=== PATIENT | female | born 1950 | race African-American/Black ===

== ENCOUNTER 2018-07-28 15:13 | Emergency (ER) | payer MEDICARE, OTHER ==
--- NOTE | 2018-07-28 15:44 | Emergency Department Report ---
Blank Doc - Documentation Documentation: This is a 67-year-old female that was sent by PCP due to abnormal blood work and blood "too thin". Patient is on Coumdian. Denies any signs or symptoms. This initial assessment/diagnostic orders/clinical plan/treatment(s) is/are subject to change based on patient's health status, clinical progression and re- assessment by fellow clinical providers in the ED. Further treatment and workup at subsequent clinical providers discretion. Patient/guardians urged not to elope from the ED as their condition may be serious if not clinically assessed and managed. Initial orders include: 1- Patient sent to MAIN ED for further evaluation and treatment 2- labs
[2018-07-28 17:52] LABS: Basophils % (Auto) 0.5 % (0.0-1.8); Eosinophils # (Auto) 0.1 K/mm3 (0.0-0.4); Eosinophils % (Auto) 1.3 % (0.0-4.3); Hematocrit 43.9 % (30.3-42.9); Hemoglobin 14.8 gm/dl (10.1-14.3); Lymphocytes # (Auto) 1.8 K/mm3 (1.2-5.4); Mean Corpuscular HGB Conc 34 % (30-34); Mean Corpuscular Volume 92 fl (79-97); Monocytes # (Auto) 0.6 K/mm3 (0.0-0.8); Monocytes % (Auto) 6.2 % (0.0-7.3); Platelet Count 281 K/mm3 (140-440); Red Cell Distribution Width 13.4 % (13.2-15.2)
[2018-07-28 18:12] LABS: Calcium 9.4 mg/dL (8.4-10.2)
[2018-07-28 18:29] LABS: INR 5.19 (0.87-1.13); Partial Thromboplastin Time 65.6 Sec. (24.2-36.6)
--- NOTE | 2018-07-28 18:58 | Emergency Department Report ---
ED General Adult HPI - General Chief complaint: Medical Clearance Stated complaint: BLOOD THIN Time Seen by Provider: 07/28/18 15:43 Source: patient Mode of arrival: Ambulatory Limitations: No Limitations - History of Present Illness Initial comments: Patient is 67-year-old female with history of atrial fibrillation on Coumadin at 5 mg daily. Patient sent by our primary care physician for evaluation of elevated INR of 7.5. Patient denies any symptoms. Patient denied any hematemesis, hematochezia hematuria, hematochezia or melena. The patient also denied any headache, chest pain or shortness of breaths. No fever or chills. - Related Data Home Medications Medication Instructions Recorded Confirmed Last Taken AtorvaSTATin [Lipitor] 10 mg PO QDAY 01/13/16 01/13/16 Unknown metFORMIN [Glucophage] 850 mg PO QDAY 01/13/16 01/13/16 Unknown Previous Rx's Medication Instructions Recorded Last Taken Type Loperamide [Imodium] 2 mg PO Q2HR PRN #20 capsule 01/13/16 Unknown Rx Allergies Allergy/AdvReac Type Severity Reaction Status Date / Time No Known Allergies Allergy Unverified 01/12/16 17:14 ED Review of Systems ROS: Stated complaint: BLOOD THIN Other details as noted in HPI Comment: All other systems reviewed and negative Constitutional: denies: chills, fever Respiratory: denies: cough, orthopnea, shortness of breath, SOB with exertion, wheezing Cardiovascular: denies: chest pain, palpitations Gastrointestinal: denies: abdominal pain, nausea, vomiting, diarrhea, constipation, hematemesis, melena, hematochezia Genitourinary: denies: urgency, hematuria, abnormal menses Musculoskeletal: denies: back pain Neurological: denies: headache, weakness, numbness, paresthesias, confusion, abnormal gait ED Past Medical Hx - Past Medical History Hx Diabetes: Yes Additional medical history: Gout - Social History Smoking Status: Never Smoker Substance Use Type: None - Medications Home Medications: Home Medications Medication Instructions Recorded Confirmed Last Taken Type AtorvaSTATin [Lipitor] 10 mg PO QDAY 01/13/16 01/13/16 Unknown History Loperamide [Imodium] 2 mg PO Q2HR PRN #20 capsule 01/13/16 Unknown Rx metFORMIN [Glucophage] 850 mg PO QDAY 01/13/16 01/13/16 Unknown History ED Physical Exam - General Limitations: No Limitations General appearance: alert, in no apparent distress - Head Head exam: Present: atraumatic, normocephalic, normal inspection - Eye Eye exam: Present: normal appearance, PERRL - ENT ENT exam: Present: normal exam, normal orophraynx, mucous membranes moist - Neck Neck exam: Present: normal inspection, full ROM. Absent: tenderness, meningismus, lymphadenopathy, thyromegaly - Respiratory Respiratory exam: Present: normal lung sounds bilaterally - Cardiovascular Cardiovascular Exam: Present: regular rate, normal rhythm, normal heart sounds - GI/Abdominal GI/Abdominal exam: Present: soft, normal bowel sounds. Absent: distended, tenderness, guarding, rebound, rigid, organomegaly, mass, bruit, pulsatile mass, hernia - Extremities Exam Extremities exam: Present: normal inspection, full ROM, normal capillary refill. Absent: pedal edema, calf tenderness - Back Exam Back exam: Present: normal inspection, full ROM. Absent: tenderness, CVA tenderness (R), CVA tenderness (L), muscle spasm, paraspinal tenderness, vertebral tenderness - Neurological Exam Neurological exam: Present: alert, oriented X3, CN II-XII intact, normal gait, reflexes normal - Skin Skin exam: Present: warm, intact, normal color ED Course Vital Signs 07/28/18 15:45 Temperature 98.7 F Pulse Rate 99 H Respiratory 18 Rate Blood Pressure 108/70 O2 Sat by Pulse 100 Oximetry ED Medical Decision Making - Lab Data Result diagrams: 07/28/18 17:04 07/28/18 17:04 - Medical Decision Making Patient is 67-year-old female with history of atrial fibrillation on Coumadin at 5 mg daily. Patient sent by our primary care physician for evaluation of elevated INR of 7.5. Patient denies any symptoms. Patient denied any hematemesis, hematochezia hematuria, hematochezia or melena. The patient also denied any headache, chest pain or shortness of breaths. No fever or chills. Repeated INR L is 5.1. I recommended to the patient to skip a dose tomorrow and to follow up with her primary care physician the next day for a recheck of her INR. I advised the patient to return to the ER if she starts having any headache, vomiting blood or passing blood through the rectum or in the urine. Critical care attestation.: If time is entered above; I have spent that time in minutes in the direct care of this critically ill patient, excluding procedure time. ED Disposition Clinical Impression: Coumadin toxicity Disposition: DC-01 TO HOME OR SELFCARE Is pt being admited?: No Condition: Stable Instructions: Elevated INR (ED) Additional Instructions: Please skip your Coumadin dose tomorrow and follow-up with your primary care physician the next day for repeat INR. Referrals: SERJIO MILLER,MANDY [Other] - 3-5 Days
[2018-07-28 19:59] VITALS: BP 131/77
== END 2018-07-28 20:03 | disposition home or self-care (01) ==
LOC: ED 15:13
DX: T45.511A Poisoning by anticoagulants, accidental (unintentional), initial encounter (principal); I48.91 Unspecified atrial fibrillation; E11.9 Type 2 diabetes mellitus without complications; M10.9 Gout, unspecified; Z79.01 Long term (current) use of anticoagulants; Y92.89 Other specified places as the place of occurrence of the external cause
CPT/HCPCS: 36415; 80048; 85025; 85610; 85730; 99283